=== PATIENT | male | born 1960 | race Caucasian/White ===

== ENCOUNTER 2017-05-29 11:38 | Emergency (ER) | payer BC ==
[2017-05-29] MEDS ORDERED: Ondansetron 4 MG/2 ML SDV IVPUSH ONE (12:05)
--- NOTE | 2017-05-29 12:07 | EDM.PDOC ---
ED HPI GENERAL MEDICAL PROBLEM - General Chief Complaint: Abdominal Pain Stated Complaint: L SIDE ABDOMINAL PAIN Time Seen by Provider: 05/29/17 11:54 Source of Information: Reports: Patient, RN Notes Reviewed History Limitations: Reports: No Limitations - History of Present Illness INITIAL COMMENTS - FREE TEXT/NARRATIVE: The patient states that he developed a hot flash, nausea, and left lower quadrant abdominal pain around 14:00 to 15:00 yesterday afternoon. It has been waxing and waning since. Symptoms worsened while working, but he also felt them this morning when not working. No recent fever, patient, diarrhea, or urinary symptoms. No prior similar symptoms. The patient has not tried any home remedies or medications. The patient states that he has not previously undergone a colonoscopy. The patient's PCP is at [facility]. Left Abdominal Pain Score (Numeric/FACES): 6 - Related Data Allergies Allergy/AdvReac Type Severity Reaction Status Date / Time No Known Allergies Allergy Verified 05/29/17 11:45 Home Meds: Home Meds Aspirin 81 mg PO DAILY 05/29/17 [History] Cholecalciferol (Vitamin D3) [Vitamin D] 1,000 unit PO DAILY 05/29/17 [History] Cinnamon Bark [Cinnamon] 100 mg PO BID 05/29/17 [History] Fish Oil/DHA/EPA [Fish Oil 1,200 MG] 2 cap PO BID 05/29/17 [History] Multivitamin [Multivitamins] 1 cap PO DAILY 05/29/17 [History] metFORMIN HCl [Metformin HCl] 1,000 mg PO ACBREAKFAST 05/29/17 [History] metFORMIN HCl [Metformin HCl] 500 mg PO BEDTIME 05/29/17 [History] Past Medical History Cardiovascular History: Reports: High Cholesterol Musculoskeletal History: Reports: Fracture (clavicle) Endocrine/Metabolic History: Reports: Diabetes, Type II - Past Surgical History HEENT Surgical History: Reports: Oral Surgery ([place] teeth extraction) Social & Family History - Tobacco Use Smoking Status *Q: Former Smoker Years of Tobacco use: 34 Packs/Tins Daily: 2 Month Tobacco Last Used: Quit 2009 - Caffeine Use Caffeine Use: Reports: Coffee - Alcohol Use Alcohol Use History: No - Recreational Drug Use Recreational Drug Use: No - Living Situation & Occupation Living situation: Reports: , with Spouse, with Family (Son) 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[employer]) ED ROS GENERAL - Review of Systems Review Of Systems: See Below Constitutional: Reports: No Symptoms HEENT: Reports: No Symptoms Respiratory: Reports: No Symptoms Cardiovascular: Reports: No Symptoms Endocrine: Reports: No Symptoms GI/Abdominal: Reports: Diarrhea (occasional) : Reports: No Symptoms Musculoskeletal: Reports: No Symptoms Skin: Reports: No Symptoms Neurological: Reports: No Symptoms Psychiatric: Reports: No Symptoms Hematologic/Lymphatic: Reports: No Symptoms Immunologic: Reports: No Symptoms ED EXAM, GI/ABD - Physical Exam Exam: See Below Exam Limited By: No Limitations General Appearance: Alert, WD/WN, No Apparent Distress Eyes: Bilateral: Normal Appearance, EOMI Ears: Normal External Exam, Hearing Grossly Normal Nose: Normal Inspection, No Blood Throat/Mouth: Normal Inspection, Normal Lips, Normal Voice, No Airway Compromise Head: Atraumatic, Normocephalic Neck: Normal Inspection, Full Range of Motion Respiratory/Chest: No Respiratory Distress, Lungs Clear, Normal Breath Sounds, No Accessory Muscle Use Cardiovascular: Normal Peripheral Pulses, Regular Rate, Rhythm, No Gallop, No JVD, No Murmur, No Rub GI/Abdominal Exam: Normal Bowel Sounds, Soft, No Organomegaly, No Distention, No Abnormal Bruit, No Mass, Pelvis Stable, Tender (Reproducible tenderness to the left lower quadrant only. Essentially nontender elsewhere.). No: Rebound (Male) Exam: Deferred Rectal (Males) Exam: Deferred Back Exam: Normal Inspection, Full Range of Motion. No: CVA Tenderness (L), CVA Tenderness (R) Extremities: Normal Inspection, Normal Range of Motion, No Pedal Edema, Normal Capillary Refill Neurological: Alert, Oriented, Normal Cognition, No Motor/Sensory Deficits Psychiatric: Normal Affect Skin Exam: Warm, Dry, Intact, Normal Color, No Rash Course - Vital Signs Last Recorded V/S: Last Vital Signs Temp 36.1 C 05/29/17 11:50 Pulse 68 05/29/17 11:50 Resp 18 05/29/17 11:50 BP 133/88 05/29/17 11:50 Pulse Ox 95 05/29/17 11:50 - Orders/Labs/Meds Orders: Active Orders 24 hr Category Date Time Status Abdomen Pelvis w Cont [CT] Stat Exams 05/29/17 12:05 Taken Sodium Chloride 0.9% [Normal Saline] 1,000 ml Med 05/29/17 12:15 Active IV ASDIRECTED Medication Orders Sodium Chloride (Normal Saline) 1,000 mls @ 150 mls/hr IV ASDIRECTED YASMEEN Last Admin: 05/29/17 12:22 Dose: 150 mls/hr Labs: Laboratory Tests 05/29/17 05/29/17 05/29/17 Range/Units 12:20 12:20 12:25 WBC 7.93 (4.23-9.07) K/mm3 RBC 5.19 (4.63-6.08) M/mm3 Hgb 15.7 (13.7-17.5) gm/L Hct 45.0 (40.1-51.0) % MCV 86.7 (79.0-92.2) fl MCH 30.3 (25.7-32.2) pg MCHC 34.9 (32.2-35.5) g/dl RDW Std Deviation 39.8 (35.1-43.9) fL Plt Count 231 (163-337) K/mm3 MPV 9.8 (9.4-12.3) fl Neutrophils % (Manual) 76 H (40-60) % Band Neutrophils % 0 (0-10) % Lymphocytes % (Manual) 24 (20-40) % Atypical Lymphs % 0 % Monocytes % (Manual) 0 L (2-10) % Eosinophils % (Manual) 0 L (0.8-7.0) % Basophils % (Manual) 0 L (0.2-1.2) Platelet Estimate Adequate RBC Morph Comment Normal Sodium 140 (136-145) mEq/L Potassium 4.1 (3.5-5.1) mEq/L Chloride 102 (98-107) mEq/L Carbon Dioxide 29 (21-32) mEq/L Anion Gap 13.1 (5-15) BUN 13 (7-18) mg/dL Creatinine 1.0 (0.7-1.3) mg/dL Est Cr Clr Drug Dosing 79.80 mL/min Estimated GFR (MDRD) > 60 (>60) mL/min BUN/Creatinine Ratio 13.0 L (14-18) Glucose 151 H (74-106) mg/dL Calcium 9.4 (8.5-10.1) mg/dL Total Bilirubin 1.1 H (0.2-1.0) mg/dL AST 23 (15-37) U/L ALT 34 (16-63) U/L Alkaline Phosphatase 68 (46-116) U/L Total Protein 7.5 (6.4-8.2) g/dl Albumin 4.0 (3.4-5.0) g/dl Globulin 3.5 gm/dL Albumin/Globulin Ratio 1.1 (1-2) Lipase 484 H (73-393) U/L Urine Color Light yellow (Yellow) Urine Appearance Clear (Clear) Urine pH 6.5 (5.0-8.0) Ur Specific [place] 1.010 (1.005-1.030) Urine Protein Negative (Negative) Urine Glucose (UA) Negative (Negative) Urine Ketones Negative (Negative) Urine Occult Blood Negative (Negative) Urine Nitrite Negative (Negative) Urine Bilirubin Negative (Negative) Urine Urobilinogen 0.2 (0.2-1.0) Ur Leukocyte Esterase Negative (Negative) Urine RBC Not seen (0-5) /hpf Urine WBC 0-5 (0-5) /hpf Ur Epithelial Cells 0-5 (0-5) /hpf Urine Bacteria Not seen (FEW) /hpf Urine Mucus Not seen (FEW) /hpf Meds: Medications Generic Name Dose Route Start Last Admin Trade Name Freq PRN Reason Stop Dose Admin Sodium Chloride 1,000 mls @ 150 mls/hr 05/29/17 12:15 05/29/17 12:22 Normal Saline IV 150 mls/hr ASDIRECTED YASMEEN Administration Discontinued Medications Generic Name Dose Route Start Last Admin Trade Name Freq PRN Reason Stop Dose Admin Diatrizoate Meglum/Diatrizoate Sod 90 ml 05/29/17 12:46 05/29/17 13:47 Gastrografin 37% PO 05/29/17 12:47 90 ml ONETIME ONE Administration Iopamidol 125 ml 05/29/17 12:46 05/29/17 13:47 Isovue-300 (61%) IVPUSH 05/29/17 12:47 125 ml ONETIME ONE Administration Ondansetron HCl 4 mg 05/29/17 12:05 05/29/17 12:23 Zofran IVPUSH 05/29/17 12:06 4 mg ONETIME ONE Administration Sodium Chloride 10 ml 05/29/17 12:46 05/29/17 13:47 Saline Flush FLUSH 05/29/17 12:47 10 ml ONETIME ONE Administration - Re-Assessments/Exams Free Text/Narrative Re-Assessment/Exam: 05/29/17 12:07 The patient's history and physical examination are consistent with acute diverticulitis. I have ordered blood work, a urinalysis, and a CT scan of the abdomen and pelvis with oral and IV contrast. I have ordered IV fluid and IV Zofran, however, the patient states that he does not have any pain at this moment, and declined an offer for pain medication. 05/29/17 14:13 CT of the abdomen and pelvis with oral and IV contrast is read by [facility] as "Colonic diverticulosis. No CT evidence of diverticulitis" 05/29/17 14:19 Test results discussed with the patient. While the CT scan found diverticulosis , it did not find diverticulitis, or any other cause for the patient's pain. While the patient's lipase is elevated at 484, this is well below 3 times upper limit of normal, the patient's pain is in his left lower quadrant, not epigastric region, and the CT scan found no abnormalities with his pancreas. The patient therefore does not have pancreatitis. I offered to place the patient into observation, versus discharge him home with a phone number to a surgeon, should his pain not improve, and the patient chose the latter. He is aware that should his symptoms significantly worsen before he can be seen by a surgeon, that he should return to the ED for reevaluation. I also offered to prescribe some Zofran, however, he declined that, as well. Departure - Departure Time of Disposition: 14:22 Disposition: Home, Self-Care 01 Condition: Good Clinical Impression: Abdominal pain of unknown etiology - Discharge Information Referrals: PCP,Not In Area [Primary Care Provider] - Anand Roe MD [Physician] - Forms: ED Department Discharge Additional Instructions: You were seen in the emergency room for lower left abdominal pain and nausea. Workup in the ER included blood work, a urinalysis, and a CT scan of your abdomen and pelvis. Your lipase returned modestly elevated, but not high enough to suggest pancreatitis, the CT scan of your abdomen and pelvis did not find any inflammation of your pancreas consistent with pancreatitis and the location of your pain is not consistent with pancreatitis. The CT scan found that you have diverticulosis (pockets of your descending colon ), but no diverticulitis (infection of the pockets of your descending colon). The cause of your abdominal pain is not known. You were offered placement into the hospital for observation, but chose to go home. If your symptoms persist, we recommend that you follow-up with the Surgeon Dr. Roe this coming week. If your symptoms worsen before you can see Dr. Roe, we recommend that you return to the ER for reevaluation. - My Orders Last 24 Hours: My Active Orders 05/29/17 12:05 Abdomen Pelvis w Cont [CT] Stat 05/29/17 12:15 Sodium Chloride 0.9% [Normal Saline] 1,000 ml IV ASDIRECTED - Assessment/Plan Last 24 Hours: My Active Orders 05/29/17 12:05 Abdomen Pelvis w Cont [CT] Stat 05/29/17 12:15 Sodium Chloride 0.9% [Normal Saline] 1,000 ml IV ASDIRECTED
[2017-05-29] MEDS ORDERED: Sodium Chloride 0.9% 1,000 ML IV SCH (12:15)
[2017-05-29] MEDS ORDERED: Iopamidol 612 MG/ML 150 ML Bottle IVPUSH ONE (12:46)
[2017-05-29] MEDS ORDERED: Diatrizoate Meglumine/Diatrizoate Sodium 37% 120 ML Bottle PO ONE (12:46)
[2017-05-29] MEDS ORDERED: Sodium Chloride 0.9% 10 ML Syringe FLUSH ONE (12:46)
--- NOTE | 2017-05-30 10:02 | CT ---
CT abdomen and pelvis Technique: Multiple axial sections were obtained from above the dome of the diaphragm inferiorly through the pubic symphysis. Intravenous and oral contrast has been given. Delayed images were also obtained through the bladder. Comparison: No prior abdominal imaging. Findings: Numerous diverticuli identified within the left colon and sigmoid regions. No inflammatory change is definitely seen to indicate diverticulitis. Visualized lung bases show nothing acute. Liver shows no focal parenchymal abnormality. Gallbladder shows no calcified gallstones. Spleen appears within normal limits. Adrenal glands show no nodule. Pancreas is within normal limits. Kidneys show symmetric contrast enhancement without hydronephrosis or mass. Aorta shows atherosclerotic calcification which continues into the iliac vessels. No aneurysm is seen. Small fat-containing left inguinal hernia is noted. Delayed images show contrast within the distal ureters and bladder. Bone window settings were reviewed. Severe disc space narrowing noted at L5-S1 with vacuum phenomena. Posterior osteophytes noted at L5-S1. Mild scattered endplate osteophytes noted throughout the spine. Degenerative apophyseal change is seen within the lumbar spine. Appendix is seen which appears normal. Impression: 1. Diverticulosis within the colon without inflammatory change to indicate diverticulitis. 2. Other incidental findings. Nothing acute is identified on CT study of the abdomen and pelvis. Diagnostic code #2 I agree with preliminary report issued by [facility] ([facility] report finalized on 05/29/17, 3:05 PM Central Time)
== END 2017-05-29 15:10 | disposition home or self-care (01) ==
LOC: JD.ED 11:38
DX: K57.30 Diverticulosis of large intestine without perforation or abscess without bleeding (principal); E78.00 Pure hypercholesterolemia, unspecified; E11.9 Type 2 diabetes mellitus without complications; Z79.84 Long term (current) use of oral hypoglycemic drugs; Z79.82 Long term (current) use of aspirin; Z87.891 Personal history of nicotine dependence
CPT/HCPCS: 36415; 74177; 80053; 81001; 83690; 85025; 96361; 96374; 99284; J2405; J7040; J7050; Q9963; Q9967